=== PATIENT | female | born 1960 | race Caucasian/White ===

== ENCOUNTER 2019-03-30 01:09 | Emergency (ER) | payer BC, SELFPAY ==
[2019-03-30 01:13] VITALS: BP 140/72; PULSE 104; RESP 13; TEMP 37.1; O2SAT 98; BMI 22.7
--- NOTE | 2019-03-30 01:24 | PC.NURSE ---
Pt reports feeling heart pounding while laying in bed. Reports the highest the hr was was about 115 on the fitbit. states HR normally in the 60s-70s. Denies any chest pain or pressure.
--- NOTE | 2019-03-30 01:32 | DI.RAD.S_ITS ---
PROCEDURE: XR CHEST 1V INDICATIONS: chest palpitations TECHNIQUE: One view of the chest was acquired. COMPARISON: None. FINDINGS: Surgical changes and devices: None. Lungs and pleura: Lungs are clear. No pleural effusions or pneumothorax. Mediastinum: Mediastinal contours appear normal. Heart size is normal. Bones and chest wall: No suspicious bony lesions. Overlying soft tissues appear unremarkable. IMPRESSION: No acute cardiopulmonary disease. Dictated by: Gregor Joyner M.D. on 03/30/2019 at 8:38 Approved by: Gregor Joyner M.D. on 03/30/2019 at 8:38
--- NOTE | 2019-03-30 01:40 | ED_ITS ---
HPI - Arrhythmia/Palpitations General Chief Complaint: Arrhythmia/Palpitations Stated Complaint: heart rate problem Time Seen by Provider: 03/30/19 01:24 Source: patient Mode of arrival: Ambulatory Limitations: no limitations History of Present Illness HPI narrative: The patient is a 58-year-old female presenting with heart palpitations. She is visiting from [place] and plans to go back home tomorrow. She has had upper respiratory like symptoms for the last 1 week she has been taking [id number] medications such as Aarti-[place] and DayQuil. This evening she was sitting on the couch when she felt her heart racing her Fitbit told her heart rate was anywhere from 110-120 and she could not get it to go diogo k down. She felt extremely cold and could not get warm she has some stiffness in her neck. No finger or hand cramping. She still feels her heart pounding with a heart rate in the 90s is now in the emergency department. She denies any shortness of breath no chest pain. She has not had any fever or productive cough. No prior history of DVT or PE. She is now wondering if she had an anxiety attack MD complaint: heart racing and palpitations Duration: constant Severity: mild Related Data Allergies Allergy/AdvReac Type Severity Reaction Status Date / Time No Known Drug Allergies Allergy Verified 03/30/19 01:44 Review of Systems Review of Systems Narrative: GENERAL: Denies chills, fatigue, malaise, fever, sweats, travel HEENT: Denies sinus pain, ear pain, sore throat, difficulty swallowing, neck pain RESPIRATORY: Denies dyspnea, cough, wheezing, hemoptysis, sputum. CARDIOVASCULAR: See HPI GASTROINTESTINAL: Denies nausea, vomiting, abdominal pain, diarrhea, constipation, melena. : Denies dysuria, frequency, incontinence, hematuria, urinary retention, flank pain. MUSCULOSKELETAL: Denies weakness, joint pain, or bony pain SKIN: No rash, no erythema, no pruritus NEUROLOGIC: Denies weakness, dizziness, headache, numbness, change in speech, confusion PSYCHIATRIC: No concerning psychosocial issues. 12 point review of systems is negative except for those stated above and HPI Patient History Medical History Patient denies medical problems (Acute) Social History Smoking Status: Never smoker Smoking Status: Never smoker alcohol intake frequency: a few times a week Substance Use Type: does not use Exam Initial Vital Signs Initial Vital Signs: Vital Signs Temperature 98.8 F 03/30/19 01:13 Pulse Rate 104 H 03/30/19 01:13 Respiratory Rate 13 03/30/19 01:13 Blood Pressure 140/72 03/30/19 01:13 Pulse Oximetry 98 03/30/19 01:13 GENERAL: Well-appearing, well-nourished and in no acute distress. HEENT: Head atraumatic,EOMI, pupils reactive, face symmetric, moist mucous membranes CARDIOVASCULAR: Regular rate and rhythm without murmurs, rubs or gallops. RESPIRATORY: Breath sounds equal bilaterally, no wheezes rales or rhonchi. ABDOMEN: Soft, nontender. Normoactive bowel sounds all 4 quadrants. No guarding or rebound. EXTREMITIES: Normal range of motion, no clubbing or edema. Neurovascularly intact NEUROLOGICAL: Alert and oriented x4.Normal gait and speech. Cranial nerves II through XII grossly intact. SKIN: Warm, dry, no laceration, no petechiae, no rashes or lesions. Scores PERC Score Age greater than or equal to 50 years: Yes Heart rate greater than or equal to 100 bpm: Yes Room Air O2 Sat less than 95%: No Unilateral leg swelling: No Recent trauma or surgery: No Hemoptysis: No Prior PE or DVT: No Hormone Use: No Total PERC Score: 2 Course Orders Ordered: ED Orders 03/30/19 01:10 Complete Blood Count AUTO DIFF Stat Comprehensive Metabolic Panel Stat D Dimer Stat Lipase Stat Troponin & CK Cardiac Panel Stat 03/30/19 01:13 EKG-12 Lead Routine 03/30/19 01:32 XR chest 1V Stat Discontinued Medications Sodium Chloride (Normal Saline 0.9%) 1,000 mls @ 1,000 mls/hr IV CONT LINNETTE Last Admin: 03/30/19 01:43 Dose: 1,000 mls/hr Documented by: MOHAN Vital Signs Vital signs: Vital Signs - 8 hr 03/30/19 01:13 03/30/19 01:56 03/30/19 02:33 Temperature 98.8 F Pulse Rate 104 H 89 79 Respiratory Rate 13 14 15 Blood Pressure 140/72 Blood Pressure [Left Arm] 121/62 111/60 Pulse Oximetry 98 97 98 MDM - Arrhythmia/Palpitations Lab Data Attestation: I reviewed the patient's lab results. Result diagrams: 03/30/19 01:10 03/30/19 01:10 Labs: Lab Results 03/30/19 03/30/19 03/30/19 Range/Units 01:10 01:10 01:10 WBC 7.4 (4.5-11.0) X10^3/uL RBC 4.55 (4.0-5.2) X10^6/uL Hgb 13.8 (12.0-16.0) g/dL Hct 39.6 (36-46) % MCV 87.0 (80-100) fL MCH 30.3 (26-34) PG MCHC 34.8 (30-36) % RDW 13.6 (11.6-14.8) % Plt Count 258 (150-400) X10^3/uL Neut % (Auto) 91.6 H (50-75) % Lymph % (Auto) 4.6 L (25-40) % [place] % (Auto) 2.4 L (3-14) % Eos % (Auto) 1.2 L (2-4) % Baso % (Auto) 0.2 (0-2) % Neut # (Auto) 6800 (4173-8478) /uL Lymph # (Auto) 300 L (2136-4422) /uL [place] # (Auto) 200 (0-900) /uL Eos # (Auto) 100 (0-450) /uL Baso # (Auto) 0 (0-100) /uL D-Dimer 265 H (<230) ng/mL Sodium 138 (137-145) mmol/L Potassium 3.6 (3.4-5.1) mmol/L Chloride 102 (98-107) mmol/L Carbon Dioxide 27 (22-32) mmol/L BUN 11 (7-17) mg/dL Creatinine 0.70 (0.52-1.04) mg/dL Estimated GFR > 60.0 (>60) mL/min BUN/Creatinine Ratio 15.7 (6-22) Glucose 125 H (70-100) mg/dL Calcium 9.3 (8.4-10.2) mg/dL Total Bilirubin 1.2 (0.2-1.3) mg/dL AST 31 (14-36) IU/L ALT 23 (<35) IU/L Alkaline Phosphatase 85 (38-126) U/L Total Creatine Kinase 46 (30-135) U/L CK-MB (CK-2) TNP CK-MB (CK-2) Rel Index TNP Troponin I < 0.012 (0.01-0.034) ng/mL Total Protein 7.4 (6.3-8.2) g/dL Albumin 4.6 (3.5-5.0) g/dL Globulin 2.8 (1.7-4.1) g/dL Albumin/Globulin Ratio 1.6 (1.0-2.8) Lipase 69 (23-300) U/L Imaging Data Chest x-ray: Attestation: I personally reviewed and interpreted this imaging study as follows: My impression: No acute cardiopulmonary process ECG Data Attestation: I personally reviewed and interpreted this ECG as follows: Prior ECG tracings: not available for review Interpretation: Normal sinus rhythm rate 95 p.r. interval 137 QRS [address] elevation depression no T-wave inversion some artifact noted MDM Narrative Medical decision making narrative: The patient is having heart palpitations her heart rate was normal shortly after arrival. It has stayed below 100 for most of her emergency department visit she is given 1 L of IV fluids. Complaining of heart palpitations and not shortness of breath. D-dimer is only minimally elevated but she really has no signs or symptoms consistent with PE. At this time, no need for CT angio. Her symptoms are actually more consistent with upper respiratory viral like syndrome. She overall is feeling better. Discharge Plan Departure Patient Disposition: Home Clinical Impression: Palpitations Discharge Date/Time: 03/30/19 02:48 Instructions: DI for Palpitations Activity Restrictions/Additional Instructions: *You have been diagnosed with palpitations *What to do: Blood work today is overall reassuring you likely have a viral infection no antibiotics indicated at this time. Chest x-ray is clear. *Continue to take medications as directed Tylenol 650 mg every 4-6 hours if needed for pain or fever Ibuprofen 800 mg every 8 hours if needed for pain or fever *Follow up with your primary care provider in 2-3 days *Return to ER if you should have increasing heart palpitations shortness of, chest pain fever not controlled or any new, worsening or concerning symptoms
[2019-03-30 01:43] LABS: D Dimer 265 ng/mL (<230)
[2019-03-30] MEDS: SODIUM CHLORIDE 0.9% 1,000 ML 1000 ML IV (01:43)
[2019-03-30 01:46] LABS: Alanine Aminotransferase 23 IU/L (<35); Albumin 4.6 g/dL (3.5-5.0); Albumin Globulin Ratio 1.6 (1.0-2.8); Alkaline Phosphatase 85 U/L (38-126); Aspartate Aminotransferase 31 IU/L (14-36); BUN Creatinine Ratio 15.7 (6-22); Bilirubin Total 1.2 mg/dL (0.2-1.3); Blood Urea Nitrogen 11 mg/dL (7-17); Calcium 9.3 mg/dL (8.4-10.2); Carbon Dioxide 27 mmol/L (22-32); Chloride 102 mmol/L (98-107); Creatine Kinase 46 U/L (30-135); Estimated Glomerular Filt Rate > 60.0 mL/min (>60); Globulin 2.8 g/dL (1.7-4.1); Glucose 125 mg/dL (70-100); HEMOLYSIS < 15 (0-50); Lipase 69 U/L (23-300); Potassium 3.6 mmol/L (3.4-5.1); Sodium 138 mmol/L (137-145); Total Protein 7.4 g/dL (6.3-8.2)
[2019-03-30 01:48] LABS: Add Manual Diff / Slide Review NO; Basophils Absolute Auto 0 /uL (0-100); Basophils Percent Auto 0.2 % (0-2); Eosinophils Absolute Auto 100 /uL (0-450); Eosinophils Percent Auto 1.2 % (2-4); Hematocrit 39.6 % (36-46); Hemoglobin 13.8 g/dL (12.0-16.0); Lymphocytes Absolute Auto 300 /uL (1100-4500); Lymphocytes Percent Auto 4.6 % (25-40); Mean Corpuscular HGB Conc 34.8 % (30-36); Mean Corpuscular Hemoglobin 30.3 PG (26-34); Monocytes Absolute Auto 200 /uL (0-900); Monocytes Percent Auto 2.4 % (3-14); Neutrophils Absolute Auto 6800 /uL (1500-7000); Neutrophils Percent Auto 91.6 % (50-75); Platelet Count 258 X10^3/uL (150-400); Red Blood Cell Count 4.55 X10^6/uL (4.0-5.2); Red Cell Distribution Width 13.6 % (11.6-14.8); White Blood Cell Count 7.4 X10^3/uL (4.5-11.0)
[2019-03-30 01:56] VITALS: BP 121/62; PULSE 89; RESP 14; O2SAT 97
[2019-03-30 01:58] LABS: Troponin I < 0.012 ng/mL (0.01-0.034)
[2019-03-30 02:33] VITALS: BP 111/60; PULSE 79; RESP 15; O2SAT 98
--- NOTE | 2019-04-19 19:51 | PC.NURSE ---
Late Entry PT received 1L NS IV infusion stopped at 0245 03/30/19.
== END 2019-03-30 02:48 | disposition home or self-care (01) ==
PROVIDERS: Emergency Provider Emergency Medicine
DX: R00.2 Palpitations (principal)
CPT/HCPCS: 36415; 71045; 80053; 82550; 83690; 84484; 85025; 85379; 93005; 93010; 93041; 96360; 99284; 99285